=== PATIENT | female | born 1935 | race Caucasian/White ===

== ENCOUNTER → 2016-05-04 | Outpatient (CLI) | payer MEDICARE, BC ==
--- NOTE | 2016-05-04 18:35 | US ---
EXAMINATION TYPE: US venous doppler duplex LE BI DATE OF EXAM: 05/04/2016 5:56 PM COMPARISON: NONE CLINICAL HISTORY: I82.401, I82.402, M79.661, M79.662. Edema and pain left leg, patient on Coumadin SIDE PERFORMED: Bilateral VESSELS IMAGED: External Iliac Vein (EIV) Common Femoral Vein Deep Femoral Vein Greater Saphenous Vein * Femoral Vein Popliteal Vein Small Saphenous Vein * Proximal Calf Veins (* superficial vessels) TECHNOLOGIST IMPRESSION: Right Leg: no evidence of DVT Left Leg: no evidence of DVT, limitations due to large amount of soft tissue edema IMPRESSION: No evidence of deep venous thrombosis in the left and right leg. Subcutaneous edema seen on the left side.
== END | disposition home or self-care (01) ==
LOC: RADUSMAIN 16:44
PROVIDERS: ATTEND Orthopaedic Surgery
DX: R60.0 Localized edema (principal); M79.605 Pain in left leg
CPT/HCPCS: 93970

== ENCOUNTER 2018-01-29 21:46 | Emergency (ER) | payer MEDICARE ==
[2018-01-29 21:50] VITALS: RESP 18
[2018-01-29] MEDS ORDERED: ACETAMINOPHEN TAB 500 MG TAB PO STA (22:42)
[2018-01-29] MEDS ORDERED: traMADol 50 MG TAB PO STA (22:52)
--- NOTE | 2018-01-29 23:06 | CT ---
EXAMINATION TYPE: CT brain wo con DATE OF EXAM: 01/29/2018 COMPARISON: None HISTORY: No prior, facial injury from fall, no LOC CT DLP: 1220.60 mGycm Automated exposure control for dose reduction was used. FINDINGS: There is cerebral cortical atrophy. There is no mass effect nor midline shift. There is no sign of in tracranial hemorrhage. There is patchy hypodensity in the periventricular white matter. The calvarium is intact. There is mild mucosal thickening in the ethmoid sinus. IMPRESSION: CEREBRAL ATROPHY AND CHRONIC SMALL VESSEL ISCHEMIA. NO ACUTE INTRACRANIAL ABNORMALITY.
--- NOTE | 2018-01-29 23:10 | CT ---
EXAMINATION TYPE: CT facial bones wo con DATE OF EXAM: 01/29/2018 COMPARISON: None HISTORY: No prior, facial injury from fall, no LOC CT DLP: 00.00 mGycm Automated exposure control for dose reduction was used. TECHNIQUE: CT scan of the sinuses is performed without contrast, axial images are obtained, coronal r eformatted images are also reviewed. FINDINGS: Nasal bone shows displacement towards the left side related to comminuted fracture. The zyg omatic arches are intact. Zygoma appear intact. There is normal aeration of the maxillary sinuses. Or bital margins are intact. There is no evidence of a blowout fracture. There is no retro-orbital mass. Frontal bone appears intact. The mandibular ring is intact. 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 Is soft tissue swelling anterior to the right maxilla. IMPRESSION: Comminuted nasal bone fracture. Mild ethmoid sinusitis. Right-sided soft tissue swelling anterior to the maxilla.
[2018-01-29] MEDS ORDERED: TOPICAL SKIN ADHESIVE 1 EACH AMP TOPICAL ONE (23:16)
[2018-01-29] MEDS ORDERED: DIPH,PERTUS(ACELL)TETVAC-LF 0.5 ML VIAL IM ONE (23:37)
--- NOTE | 2018-01-29 23:43 | ED ---
Head Injury HPI - General Chief complaint: Head Injury Stated complaint: facial injury Time Seen by Provider: 01/29/18 22:05 Source: patient Mode of arrival: wheelchair Limitations: no limitations - History of Present Illness Initial comments: 82-year-old female patient presents to the emergency department today for evaluation of laceration to her nose and facial trauma after experiencing a fall. Patient states that she has chronic problems with her right ankle. States that she was walking a lot today and this evening in her bedroom her ankle gave out causing a fall. Patient states she did strike her face on the end table. States that she had immediate bleeding from the nose as well as laceration to the nose. She denies any loss of consciousness with the injury. States that she does currently have a headache. She denies any blurred vision, double vision, dizziness, weakness, nausea, or vomiting. Patient states she is having throbbing pain to the face. She denies any neck or back pain. Denies any other injuries. She is unsure when her last tetanus vaccine was given. Denies any use of anticoagulant or antiplatelet medications. Patient denies any chest pain, shortness of breath, abdominal pain, or difficulties with bowel movements or urination. - Related Data Previous Rx's Medication Instructions Recorded traMADol HCl [Ultram] 50 mg PO Q4H PRN #20 tab 11/05/15 Cephalexin [Keflex] 500 mg PO Q6H #28 cap 01/29/18 Allergies/Adverse reactions: Allergies Allergy/AdvReac Type Severity Reaction Status Date / Time Influenza Virus Vaccines Allergy Rash/Hives Verified 01/29/18 21:50 latex Allergy Rash/Hives Verified 01/29/18 21:50 procaine HCl [From Novocain] Allergy Rash/Hives Verified 01/29/18 21:50 Review of Systems ROS Statement: Those systems with pertinent positive or pertinent negative responses have been documented in the HPI. ROS Other: All systems not noted in ROS Statement are negative. Past Medical History Past Medical History: Asthma History of Any Multi-Drug Resistant Organisms: None Reported Past Surgical History: Joint Replacement, Orthopedic Surgery Past Psychological History: No Psychological Hx Reported Smoking Status: Never smoker Past Alcohol Use History: None Reported Past Drug Use History: None Reported General Exam Limitations: no limitations General appearance: alert, in no apparent distress, other (This is a well- developed, well-nourished elderly female patient in no acute distress. Vital signs upon presentation are temperature is 98.0F, pulse 88, respirations 18, blood pressure 194/80, pulse ox 99% on room air.) Eye exam: Present: normal appearance, PERRL, EOMI, periorbital swelling (Right suborbital swelling), periorbital tenderness (Right suborbital tenderness), other (Patient has right suborbital ecchymosis. Globes are intact. Pupils are equal, round, and briskly reactive. No hyphema.). Absent: scleral icterus, conjunctival injection ENT exam: Present: normal oropharynx, mucous membranes moist, TM's normal bilaterally, other (Irregular laceration measuring 2cm to the nasal bridge. There is surrounding abrasion, ecchymosis, and soft tissue swelling. ). Absent : normal exam Neck exam: Present: normal inspection, full ROM, other (Nontender, no step-off, no deformity to firm midline palpation of the posterior cervical spine. Full range of motion without pain or limitation.). Absent: tenderness, meningismus, lymphadenopathy Respiratory exam: Present: normal lung sounds bilaterally. Absent: respiratory distress, wheezes, rales, rhonchi, stridor Cardiovascular Exam: Present: regular rate, normal rhythm, normal heart sounds. Absent: systolic murmur, diastolic murmur, rubs, gallop, clicks GI/Abdominal exam: Present: soft, normal bowel sounds. Absent: distended, tenderness, guarding, rebound, rigid Extremities exam: Present: normal inspection, full ROM, normal capillary refill , other (Patient has some mild tenderness to the bilateral anterior knees. No abrasion or ecchymosis. No swelling. Skin to the upper and lower extremities is pink, warm, and dry. Cap refills less than 3 seconds. Pedal pulses 2+ and equal bilaterally. Radial pulses 2+ and equal bilaterally.). Absent: tenderness, pedal edema, joint swelling, calf tenderness Back exam: Present: normal inspection, other (Nontender, no step-off, no deformity to firm midline palpation of the thoracic and lumbar vertebrae. Full range of motion without pain or limitation.). Absent: vertebral tenderness Neurological exam: Present: alert, oriented X3, CN II-XII intact Psychiatric exam: Present: normal affect, normal mood Skin exam: Present: warm, dry, intact, normal color. Absent: rash Course Vital Signs 01/29/18 01/30/18 21:48 00:11 Temperature 98 F 97.8 F Pulse Rate 88 77 Respiratory 18 18 Rate Blood Pressure 194/80 183/104 O2 Sat by Pulse 99 98 Oximetry Procedures - Laceration Laceration #1 Consent Obtained: verbal consent Indication: laceration Site: face (Nasal bridge) Size (cm): 2 Description: stellate Depth: simple, single layer Pre-repair: wound explored Type of Sutures: other (Exofin) Patient Tolerated Procedure: well, no complications Medical Decision Making - Medical Decision Making 82-year-old female patient presents to the emergency department today for evaluation after fall. Physical examination did reveal 2 cm stellate laceration to the nasal bridge. Patient did have ecchymosis and soft tissue swelling over the nasal bridge as well as over the right suborbital region. Patient is neurologically intact with no focal deficits. Patient denied taking antiplatelet or anticoagulant medication. CT of the brain was performed and showed no acute intracranial abnormalities. Computed tomography scan of the face was obtained and did show a comminuted nasal bone fracture with displacement to the left. I did discuss findings and results with the patient. Patient did report ALLERGY to "leanna" medications and refuses suturing. I did repair laceration with Exofin skin adhesive. I did discuss with patient risks of scarring and poor cosmetic outcome with using the glue vs. sutures for this type of laceration, she verbally accepted risk and requested the glue. Tetanus was updated. Patient does have tramadol at home for pain control. She is instructed to apply ice to the facial swelling. She is instructed to follow-up with ear, nose, and throat specialty for further evaluation of her nasal bone fracture. She is instructed to follow-up with her primary care physician for recheck in 1-2 days. Return parameters were discussed in detail. She verbalizes understanding and agreed with this plan. - Radiology Data Radiology results: report reviewed, image reviewed CT brain without contrast was obtained. There is cerebral cortical atrophy. This no mass effect or midline shift. There is no sign of intracranial hemorrhage. There is patchy hypodensity in the periventricular white matter. The calvarium is intact. There is mild mucosal thickening in the ethmoid sinus. Impression by Dr. Waldron shows cerebral atrophy and chronic small vessel ischemia. No acute intracranial abnormality. Computed tomography scan of the sinuses performed without contrast. He is 1 shows displacement was a left-sided related to comminuted fracture. The zygomatic arches are intact. Zygoma appear intact. There is normal aeration of the maxillary sinuses. Orbital margins are intact. Is no evidence of a blowout fracture. There is no retro-orbital mass. Frontal bone. Intact. The mandibular ring is intact. There is some osteoarthritic changes the temporomandibular joint. Soft tissue swelling anterior to the right maxilla. Impression by Dr. Waldron shows comminuted nasal bone fracture. Mild ethmoid sinusitis. Right-sided soft tissue swelling anterior to the maxilla. Disposition Clinical Impression: Facial trauma, Facial laceration, Open fracture nasal bone Disposition: HOME SELF-CARE Condition: Good Instructions: Nasal Fracture (ED), Skin Adhesive Care (ED), Facial Laceration ( ED) Additional Instructions: Do not scrub or pull at the glue. Follow-up with ear, nose, and throat specialist for recheck as soon as possible. Return immediately for any new, worsening, or concerning symptoms per Prescriptions: Cephalexin [Keflex] 500 mg PO Q6H #28 cap Is patient prescribed a controlled substance at d/c from ED?: No Referrals: Nahed Rose MD [Primary Care Provider] - 1-2 days Kit Roman DO [Doctor of Osteopathic Medicine] - 1-2 days Time of Disposition: 23:43
[2018-01-29] MEDS ORDERED: CEPHALEXIN 500MG STARTER PACK 4 CAP BTL PO STA (23:44)
[2018-01-30 00:13] VITALS: BP 183/104; PULSE 77; TEMP 97.8
== END 2018-01-30 00:11 | disposition home or self-care (01) ==
LOC: EC 21:46
DX: S02.2XXB Fracture of nasal bones, initial encounter for open fracture (principal); S01.21XA Laceration without foreign body of nose, initial encounter; Z23 Encounter for immunization; Z96.60 Presence of unspecified orthopedic joint implant; Z88.7 Allergy status to serum and vaccine; Z91.040 Latex allergy status; Z88.4 Allergy status to anesthetic agent; W01.198A Fall on same level from slipping, tripping and stumbling with subsequent striking against other object, initial encounter; Y93.01 Activity, walking, marching and hiking; Y92.003 Bedroom of unspecified non-institutional (private) residence as the place of occurrence of the external cause
CPT/HCPCS: 12011; 70450; 70486; 90471; 90715; 99283

== ENCOUNTER 2021-06-05 14:27 | Emergency (ER) | payer MEDICARE ==
[2021-06-05 14:36] VITALS: TEMP 97.8
[2021-06-05] MEDS ORDERED: traMADol 50 MG TAB PO STA (15:16)
--- NOTE | 2021-06-05 15:20 | ED ---
General Adult HPI - General Chief complaint: Head Injury Stated complaint: Head Injury Time Seen by Provider: 06/05/21 15:04 Source: patient, RN notes reviewed Mode of arrival: ambulatory Limitations: no limitations - History of Present Illness Initial comments: Patient's an 85-year-old female presenting to the emergency room today with a chief complaint of a laceration to the top of her head. She does admit that just prior to arrival she had a can fall. Head causing this laceration. There was no loss conscious. She is not on any blood thinners. Patient admits to pain locally to the laceration site. She denies any other complains or any other symptoms. - Related Data Previous Rx's Medication Instructions Recorded traMADol HCl [Ultram] 50 mg PO Q4H PRN #20 tab 11/05/15 Cephalexin [Keflex] 500 mg PO Q6H #28 cap 01/29/18 Allergies Allergy/AdvReac Type Severity Reaction Status Date / Time Influenza Virus Vaccines Allergy Rash/Hives Verified 06/05/21 14:32 latex Allergy Rash/Hives Verified 06/05/21 14:32 procaine HCl [From Novocain] Allergy Rash/Hives Verified 06/05/21 14:32 Review of Systems ROS Statement: Those systems with pertinent positive or pertinent negative responses have been documented in the HPI. ROS Other: All systems not noted in ROS Statement are negative. Past Medical History Past Medical History: Asthma History of Any Multi-Drug Resistant Organisms: None Reported Past Surgical History: Joint Replacement, Orthopedic Surgery Past Psychological History: No Psychological Hx Reported Smoking Status: Never smoker Past Alcohol Use History: None Reported Past Drug Use History: None Reported General Exam - General Exam Comments Initial Comments: General: The patient is awake and alert, in no distress, and does not appear acutely ill. Eye: Pupils are equal, round and reactive to light, extra-ocular movements are intact. No nystagmus. There is normal conjunctiva bilaterally. No signs of icterus. Ears, nose, mouth and throat: There are moist mucous membranes and no oral lesions. Neck: The neck is supple Respiratory: respirations are non-labored, breath sounds are equal. Musculoskeletal: Normal ROM, no tenderness. Strength 5/5. Sensation intact. Neurological: A&O x 3. CN II-XII intact, There are no obvious motor or sensory deficits. Coordination appears grossly intact. Speech is normal. Skin: Patient does have laceration to the top of the head that measures approximately 1 cm Psychiatric: Cooperative, appropriate mood & affect, normal judgment. Limitations: no limitations Course Vital Signs 06/05/21 14:33 Temperature 97.8 F Pulse Rate 86 Respiratory 20 Rate Blood Pressure 193/89 O2 Sat by Pulse 99 Oximetry Procedures - Procedures Initial comment: 1 cm laceration to the head. No active bleeding. Wound was cleaned here in the emergency room by nursing staff. Was closed and approximated with 2 mary. Patient tolerated well. Medical Decision Making - Medical Decision Making Laceration was clean closed here in the emergency room she tolerated well. Patient advised to have mary removed 10 days. Patient admits to some chronic headaches as well. States she was taking tramadol the past. States she's been unable to follow with her family doctor. Was wondering if she could have a tramadol here. She was given one tablet. Patient is advised follow-up the family doctor. Advised return if any symptoms increase or worsen. States understanding and is in agreement. Disposition Clinical Impression: Scalp laceration Disposition: HOME SELF-CARE Condition: Good Instructions (If sedation given, give patient instructions): Laceration (ED) Additional Instructions: Please have mray removed in 10 days. Return to emergency room for any other concerns. Is patient prescribed a controlled substance at d/c from ED?: No If prescribed controlled substance>3 days was MAPS reviewed?: Prescribed <3 Days Referrals: Nahed Rose MD [Primary Care Provider] - 1-2 days Time of Disposition: 15:20
[2021-06-05 15:42] VITALS: BP 152/79; PULSE 85; RESP 18
== END 2021-06-05 15:42 | disposition home or self-care (01) ==
LOC: EC 14:27
DX: S01.01XA Laceration without foreign body of scalp, initial encounter (principal); J45.909 Unspecified asthma, uncomplicated; W22.8XXA Striking against or struck by other objects, initial encounter
CPT/HCPCS: 12001; 99282

== ENCOUNTER 2023-12-09 08:33 | Emergency (ER) | payer MEDICARE ==
[2023-12-09 08:55] VITALS: TEMP 98.1
--- NOTE | 2023-12-09 09:11 | ED ---
General Adult HPI - General Chief complaint: Fall Stated complaint: Fall Time Seen by Provider: 12/09/23 08:33 Source: patient, EMS, RN notes reviewed, old records reviewed Mode of arrival: EMS Limitations: no limitations - History of Present Illness Initial comments: Patient is an 88-year-old female who presents emergency department after a fall. States she fell this morning when she woke up and believes she struck her head on an end table. Has been dealing with bleeding from the site since. Did not call EMS until later this morning as the bleeding was persistent at home. EMS provided a pressure bandage which did seem to stem the bleeding. Patient is not on blood thinners. Takes no medications at home. Has remote history of asthma. Did not experience loss of consciousness. Denies any other injuries. Has chronic neck pain which is unchanged from baseline. Denies chest pain, abdominal pain, nausea, vomiting. Was ambulatory at home after the fall. Not up-to-date on tetanus. Presents for further evaluation at this time. - Related Data Home Medications Medication Instructions Recorded Confirmed No Known Home Medications 12/09/23 12/09/23 Allergies Allergy/AdvReac Type Severity Reaction Status Date / Time Influenza Virus Vaccines Allergy Rash/Hives Verified 12/09/23 10:45 latex Allergy Rash/Hives Verified 12/09/23 10:45 procaine HCl [From Novocain] Allergy Rash/Hives Verified 12/09/23 10:45 Review of Systems ROS Statement: Those systems with pertinent positive or pertinent negative responses have been documented in the HPI. Review of Systems: CONST: Denies fever EYES: Denies blurry vision ENT: Denies nasal congestion C/V: Denies Chest pain RESP: Denies shortness of breath GI: Denies abdominal pain : Denies dysuria SKIN: Endorses scalp injury MSK: Endorses scalp pain NEURO: Denies headache ROS Other: All systems not noted in ROS Statement are negative. Past Medical History Past Medical History: Asthma History of Any Multi-Drug Resistant Organisms: None Reported Past Surgical History: Joint Replacement, Orthopedic Surgery Past Psychological History: No Psychological Hx Reported Smoking Status: Never smoker Past Alcohol Use History: None Reported Past Drug Use History: None Reported General Exam - General Exam Comments Initial Comments: General: Appears in mild distress secondary to scalp injury HEAD: Left parietal scalp hematoma and suspected laceration. Negative Quintero sign. Negative raccoon eyes. EYES: PERRLA, EOMI, conjunctiva normal, no discharge. Pupils are 3 mm and equal bilaterally. ENT: Hearing grossly intact, normal oropharynx. RESPIRATORY: Clear breath sounds bilaterally. No wheezes, rales, or rhonchi. C/V: Regular rate and rhythm. S1 and S2 auscultated, no edema, peripheral pulses 2+ and intact throughout ABD: Abd is soft, nontender, nondistended EXT: Normal range of motion, no obvious deformity. No midline cervical, t horacic, lumbar spine tenderness to palpation. Pelvis is stable. SKIN: Patient does have a hematoma and suspected scalp laceration however bleeding is controlled at this time. We will probe and further inspect after imaging and workup. NEURO: Alert and oriented x 4. GCS of 15. No focal neurological deficits. Limitations: no limitations Course Vital Signs 12/09/23 12/09/23 08:52 09:55 Temperature 98.1 F Pulse Rate 78 72 Respiratory 18 17 Rate Blood Pressure 184/110 169/82 O2 Sat by Pulse 99 100 Oximetry Procedures - Laceration Laceration #1 Consent Obtained: verbal consent Indication: laceration Site: scalp Size (cm): 6 Description: linear Depth: simple, single layer Pre-repair: wound explored, irrigated extensively Additional Comments: 10 mary placed Medical Decision Making - Medical Decision Making Was pt. sent in by a medical professional or institution (, PA, COMMERCIAL LITIGATION ATTORNEY, urgent care, hospital, or long-term...) When possible be specific @ -No Did you speak to anyone other than the patient for history (EMS, parent, family, police, friend...)? What history was obtained from this source @ -No Did you review nursing and triage notes (agree or disagree)? Why? @ -I reviewed and agree with nursing and triage notes Were old charts reviewed (outside hosp., previous admission, EMS record, old EKG, old radiological studies, urgent care reports/EKG's, long-term records)? Report findings @ -No old charts were reviewed Differential Diagnosis (chest pain, altered mental status, abdominal pain women, abdominal pain men, vaginal bleeding, weakness, fever, dyspnea, syncope, headache, dizziness, GI bleed, back pain, seizure, CVA, palpatations, mental health, musculoskeletal)? @ -Fall, scalp laceration, intracranial injury, scalp hematoma. This list is not all inclusive. EKG interpreted by me (3pts min.). @ -As above X-rays interpreted by me (1pt min.). @ -Chest x-ray reveals no obvious acute injury. Pelvis x-ray reveals no obvious acute injury. CT interpreted by me (1pt min.). @ -CT brain reveals no obvious acute intracranial process or injury. CT cervical spine reveals no obvious acute injury. Patient does have a left scalp hematoma at the site of the laceration. U/S interpreted by me (1pt. min.). @ -None done What testing was considered but not performed or refused? (CT, X-rays, U/S, labs)? Why? @ -None What meds were considered but not given or refused? Why? @ -None Did you discuss the management of the patient with other professionals (professionals i.e. , PA, COMMERCIAL LITIGATION ATTORNEY, lab, RT, psych nurse, psychiatric social worker, architect manager, teacher, precinct commanding officer, spring encaser)? Give summary @ -No Was smoking cessation discussed for >3mins.? @ -No Was critical care preformed (if so, how long)? @ -No Were there social determinants of health that impacted care today? How? (Homelessness, low income, unemployed, alcoholism, drug addiction, transportation, low edu. Level, literacy, decrease access to med. care, usp, rehab)? @ -No Was there de-escalation of care discussed even if they declined (Discuss DNR or withdrawal of care, Hospice)? DNR status @ -No What co-morbidities impacted this encounter? (DM, HTN, Smoking, COPD, CAD, Cancer, CVA, ARF, Chemo, Hep., AIDS, mental health diagnosis, sleep apnea, morbid obesity)? @ -None Was patient admitted / discharged? Hospital course, mention meds given and route, prescriptions, significant lab abnormalities, going to OR and other pertinent info. @ -Patient presents emergency department complaining of a fall. Patient is not on blood thinners. She experienced no loss of consciousness. Has normal motor GCS. She does have an apparent scalp wound to the left parietal scalp that is difficult to evaluate at this time due to blood clotting and hair clotting but the bleeding appears to have stopped. Pressure dressing with TXA soaked gauze reapplied to the area. We will further investigate following imaging and workup. Patient does not meet trauma activation criteria. Vital signs remarkable for mild hypertension likely related to stress. Patient be given morphine for pain, 1 L fluids, as well as tetanus booster. Patient was in agreement this plan. No other obvious injuries. EKG shows no signs of acute ischemia.Imaging returned unremarkable. Laboratory studies also unremarkable. Patient required closure of scalp laceration. After cleaning it up, bleeding was controlled. Patient has an approximately 6 cm linear laceration with underlying hematoma to the left superior parietal scalp. Closed with 10 mary. Patient tolerated procedure well. Pressure dressing reapplied. Instructed not to remove for least a day unless it begins to bleed through which case she should be return to the ER. She was in agreement this plan. Patient be discharged home at this time. I did offer observation admission with her age however she would like to go home as she does have a dog at home. She feels well enough, vitals are within acceptable limits, workup relatively unremarkable otherwise believe this is reasonable. Can use Tylenol Motrin at home as needed for pain control. I instructed the patient to follow up with their PCP in the next 1-3 days. I explained that the patient should return to the emergency department if they experience any worsening symptoms. Strict return precautions were discussed with the patient. The patient expressed understanding of these instructions. I answered all questions that the patient had. The patient was discharged home in [good] condition with their prescriptions and follow up information. Undiagnosed new problem with uncertain prognosis? @ -No Drug Therapy requiring intensive monitoring for toxicity (Heparin, Nitro, Insulin, Cardizem)? @ -No Were any procedures done? @ -No Diagnosis/symptom? @ -Fall, scalp laceration closed with mary Acute, or Chronic, or Acute on Chronic? @ -Acute Uncomplicated (without systemic symptoms) or Complicated (systemic symptoms)? @ -Complicated Side effects of treatment? @ -None Exacerbation, Progression, or Severe Exacerbation] @ -No Poses a threat to life or bodily function? @ -Unlikely - Lab Data Result diagrams: 12/09/23 08:39 12/09/23 08:39 Lab Results 12/09/23 12/09/23 12/09/23 Range/Units 08:39 08:39 08:39 WBC 8.6 (3.8-10.6) k/uL RBC 4.82 (3.80-5.40) m/uL Hgb 14.2 (11.4-16.0) gm/dL Hct 42.4 (34.0-46.0) % MCV 87.9 (80.0-100.0) fL MCH 29.4 (25.0-35.0) pg MCHC 33.5 (31.0-37.0) g/dL RDW 14.3 (11.5-15.5) % Plt Count 237 (150-450) k/uL MPV 7.9 Neutrophils % 63 % Lymphocytes % 20 % Monocytes % 4 % Eosinophils % 11 % Basophils % 1 % Neutrophils # 5.4 (1.3-7.7) k/uL Lymphocytes # 1.7 (1.0-4.8) k/uL Monocytes # 0.3 (0-1.0) k/uL Eosinophils # 0.9 H (0-0.7) k/uL Basophils # 0.1 (0-0.2) k/uL PT 10.5 (10.0-12.5) sec INR 1.0 (<1.2) APTT 22.6 (22.0-30.0) sec Sodium 139 (137-145) mmol/L Potassium 3.6 (3.5-5.1) mmol/L Chloride 106 (98-107) mmol/L Carbon Dioxide 26 (22-30) mmol/L Anion Gap 7 mmol/L BUN 14 (7-17) mg/dL Creatinine 0.79 (0.52-1.04) mg/dL Est GFR (CKD-EPI)AfAm 79 (>60 ml/min/1.73 sqM) Est GFR (CKD-EPI)NonAf 69 (>60 ml/min/1.73 sqM) Glucose 157 H (74-99) mg/dL POC Glucose (mg/dL) (70-110) mg/dL POC Glu Lot Associate ID Calcium 9.3 (8.4-10.2) mg/dL Total Bilirubin 0.7 (0.2-1.3) mg/dL AST 27 (14-36) U/L ALT 16 (4-34) U/L Alkaline Phosphatase 46 (38-126) U/L Total Protein 6.6 (6.3-8.2) g/dL Albumin 4.1 (3.5-5.0) g/dL Serum Alcohol <10 mg/dL 12/09/23 Range/Units 09:22 WBC (3.8-10.6) k/uL RBC (3.80-5.40) m/uL Hgb (11.4-16.0) gm/dL Hct (34.0-46.0) % MCV (80.0-100.0) fL MCH (25.0-35.0) pg MCHC (31.0-37.0) g/dL RDW (11.5-15.5) % Plt Count (150-450) k/uL MPV Neutrophils % % Lymphocytes % % Monocytes % % Eosinophils % % Basophils % % Neutrophils # (1.3-7.7) k/uL Lymphocytes # (1.0-4.8) k/uL Monocytes # (0-1.0) k/uL Eosinophils # (0-0.7) k/uL Basophils # (0-0.2) k/uL PT (10.0-12.5) sec INR (<1.2) APTT (22.0-30.0) sec Sodium (137-145) mmol/L Potassium (3.5-5.1) mmol/L Chloride (98-107) mmol/L Carbon Dioxide (22-30) mmol/L Anion Gap mmol/L BUN (7-17) mg/dL Creatinine (0.52-1.04) mg/dL Est GFR (CKD-EPI)AfAm (>60 ml/min/1.73 sqM) Est GFR (CKD-EPI)NonAf (>60 ml/min/1.73 sqM) Glucose (74-99) mg/dL POC Glucose (mg/dL) 169 H (70-110) mg/dL POC Glu Lot Associate ID Sujata Gramajo Calcium (8.4-10.2) mg/dL Total Bilirubin (0.2-1.3) mg/dL AST (14-36) U/L ALT (4-34) U/L Alkaline Phosphatase (38-126) U/L Total Protein (6.3-8.2) g/dL Albumin (3.5-5.0) g/dL Serum Alcohol mg/dL - EKG Data -: EKG Interpreted by Me EKG Comments: 12-lead Electrocardiogram Interpretation Note EKG was reviewed and interpreted by myself. 12-lead ECG performed at 0856 is int erpreted by me as revealing normal sinus rhythm at a rate of 73 beats per minute. [place] is normal. MA interval is 176 ms, QRS durations 93 ms, QTc is 409 ms.. There were no ST or T wave abnormalities to suggest myocardial ischemia or injury. R wave progression across the precordium was satisfactory. By my interpretation this EKG is non-diagnostic for acute ischemia. Disposition Clinical Impression: Fall, Scalp laceration Disposition: HOME SELF-CARE Condition: Good Instructions (If sedation given, give patient instructions): Fall Prevention for Older Adults (ED), Staple Care (ED) Additional Instructions: Have medical provider remove mary in 7-10 days. Return if worsening bleeding or other concerns to the ER. Is patient prescribed a controlled substance at d/c from ED?: No Referrals: Nahed Rose MD [STAFF PHYSICIAN] - 1-2 days Time of Disposition: 11:32
[2023-12-09 09:23] LABS: Glucose,Whole Blood 169 mg/dL (70-110)
[2023-12-09 09:25] LABS: Basophils # (A) 0.1 k/uL (0-0.2); Basophils % (A) 1 %; Eosinophils # (A) 0.9 k/uL (0-0.7); Eosinophils % (A) 11 %; HCT 42.4 % (34.0-46.0); HGB 14.2 gm/dL (11.4-16.0); Lymphocytes # (A) 1.7 k/uL (1.0-4.8); Lymphocytes % (A) 20 %; MCH 29.4 pg (25.0-35.0); MCHC 33.5 g/dL (31.0-37.0); MCV 87.9 fL (80.0-100.0); Mean Platelet Volume 7.9; Monocytes # (A) 0.3 k/uL (0-1.0); Monocytes % (A) 4 %; Neutrophils # (A) 5.4 k/uL (1.3-7.7); Neutrophils % (A) 63 %; Platelet Count 237 k/uL (150-450); RBC 4.82 m/uL (3.80-5.40); RDW 14.3 % (11.5-15.5); WBC 8.6 k/uL (3.8-10.6)
--- NOTE | 2023-12-09 09:27 | XR ---
EXAMINATION TYPE: XR pelvis AP view DATE OF EXAM: 12/09/2023 CLINICAL HISTORY: pain TECHNIQUE: Single view the pelvis is submitted. FINDINGS: No evidence for fracture, dislocation or bony lesion. Bilateral hip prostheses. SI joints appear symmetric. IMPRESSION: 1. No acute fracture or dislocation seen. ICD 10 NO FRACTURE, INITIAL EVALUATION
--- NOTE | 2023-12-09 09:27 | XR ---
EXAMINATION TYPE: XR chest 1V portable DATE OF EXAM: 12/09/2023 HISTORY: Shortness of breath. COMPARISON: None. TECHNIQUE: Single view of the chest is submitted. FINDINGS: Demonstrated are scattered senescent parenchymal change. There is no evidence for focal infiltrate. The heart is stable. Hilar and mediastinal structures are within normal limits. Degenerative changes are seen of the dorsal spine. IMPRESSION: 1. Chronic changes without evidence for acute pulmonary disease.
[2023-12-09 09:41] LABS: ALT 16 U/L (4-34); AST 27 U/L (14-36); African American GFR (CKD) 79 (>60 ml/min/1.73 sqM); Albumin 4.1 g/dL (3.5-5.0); Alkaline Phosphatase 46 U/L (38-126); Blood Urea Nitrogen 14 mg/dL (7-17); Calcium 9.3 mg/dL (8.4-10.2); Carbon Dioxide 26 mmol/L (22-30); Chloride 106 mmol/L (98-107); Glucose 157 mg/dL (74-99); Non-African American GFR(CKD) 69 (>60 ml/min/1.73 sqM); Partial Thromboplastin Time 22.6 sec (22.0-30.0); Prothrombin Time 10.5 sec (10.0-12.5); Total Bilirubin 0.7 mg/dL (0.2-1.3); Total Protein 6.6 g/dL (6.3-8.2)
[2023-12-09 09:42] LABS: Alcohol <10 mg/dL; Anion Gap 7 mmol/L; Sodium 139 mmol/L (137-145)
[2023-12-09 09:54] LABS: Potassium 3.6 mmol/L (3.5-5.1)
[2023-12-09] MEDS: TRANEXAMIC ACID 1,000 MG/10 ML VIAL MISCELLANE ONE ×2 (09:55→09:56)
[2023-12-09] MEDS: SODIUM CHLORIDE 0.9% 1,000 ML IV ONE (10:02)
[2023-12-09] MEDS: DIPH,PERTUS(ACELL)TETVAC-LF 0.5 ML VIAL IM ONE (10:02)
[2023-12-09 10:07] VITALS: RESP 17
[2023-12-09] MEDS: MORPHINE SULFATE 2 MG/ML SYRINGE IV STA (10:10)
--- NOTE | 2023-12-09 10:49 | CT ---
EXAMINATION TYPE: CT brain cspine wo con CT DLP: 1435.2 mGycm, Automated exposure control for dose reduction was used. DATE OF EXAM: 12/09/2023 10:32 AM COMPARISON: None. CLINICAL INDICATION: Female, 88 years old with history of fall, scalp lac; Fall, scalp lac TECHNIQUE: Brain: Multiple axial CT images of the brain were obtained without IV contrast. Cspine: Axial CT images from the skull base to the inferior aspect of T2 we obtained without intraven ous contrast. Coronal and sagittal reformatted images were also reviewed. . FINDINGS: Brain: Extra-axial spaces: No abnormal extra-axial fluid collections. Ventricular system: Within normal limits Cerebral parenchyma: No acute intraparenchymal hemorrhage or mass effect. The marrero-white junction is well differentiated. Cerebellum: Unremarkable. Mass effect: No evidence of midline shift. Intracranial vasculature: unremarkable Soft tissues: Left scalp edema/hematoma. Calvarium/osseous structures: No depressed skull fracture. Paranasal sinuses and mastoid air cells: Clear. Visualized orbits: Orbital contents are intact. Cervical spine: Fracture: None. Osseous structures: Multilevel degenerative disc disease changes with endplate spurring and disc oste ophyte complex's. Vertebral alignment: Within normal limits. Spinal canal/Neural Foramina: No evidence of significant spinal canal narrowing. No evidence for sign ificant neural foraminal stenosis. Neck soft tissues: Prevertebral soft tissues are within normal limits. Other: The airway is patent. The lung apices are clear. IMPRESSION: 1. No acute intracranial process. 2. Left scalp edema/hematoma. 3. Nonspecific white matter changes, likely secondary to chronic small vessel ischemic disease. 4. No evidence of cervical spine fracture. 5. Mild multilevel degenerative disc disease.
[2023-12-09 12:08] VITALS: BP 170/90; PULSE 74
== END 2023-12-09 12:08 | disposition home or self-care (01) ==
LOC: EC 08:33
DX: W19.XXXA Unspecified fall, initial encounter
CPT/HCPCS: 12002; 36415; 70450; 71045; 72125; 72170; 80053; 80320; 85025; 85610; 85730; 90471; 90715; 93005; 96360; 99284

== ENCOUNTER 2024-10-17 06:16 | Day surgery (SDC) | payer MEDICARE ==
[2024-10-15 11:31] VITALS: BMI 30.7
[~2024-10-17 06:16] MED LIST: Pre Op ABX Message 1 EACH MISC MISCELLANE ONE
[2024-10-17] MEDS: IV FLUID CONTINUATION 1,000 ML IV ONE (06:40)
[2024-10-17] MEDS: CYCLOPENTOLATE 1% OPHTH SOLN 2 ML BTL OP PRN (06:58)
[2024-10-17] MEDS: PHENYLEPHRINE 2.5% OPHTH DRP 2ML OP PRN (07:02)
[2024-10-17] MEDS: LACTATED RINGERS 1,000 ML IV SCH (07:10)
[2024-10-17] MEDS ORDERED: PROPOFOL 10 MG/ML 20 ML VIAL IV ONE (07:30)
[2024-10-17] MEDS ORDERED: MIDAZOLAM 2 MG/2 ML VIAL ONE (07:30)
[2024-10-17] MEDS: EPINEPHrine (PF) 0.3 ML in BALANCED SALT IRRIG SOLN COMB2 500 ML IRRIGATION ONE (07:34)
[2024-10-17] MEDS: MOXIFLOXACIN HCL 0.5% DROPS 3 ML BTL OP PRN (07:57)
[2024-10-17] MEDS: BALANCED SALT IRRIG SOLN COMB2 15 ML IRRIG.SOLN INTRAOCULA ONE (07:57)
[2024-10-17] MEDS: DUOVISC KIT (GREEN BOX) INTRAOCULA ONE (07:57)
[2024-10-17] MEDS: TIMOLOL 0.5% OPHTH DROPS 5 ML BTL OP PRN (07:58)
--- NOTE | 2024-10-17 08:08 | P.OP ---
Date of Procedure: 10/17/24 Preoperative Diagnosis: NS & CS & PSC Postoperative Diagnosis: same Procedure(s) Performed: PIOL, OS Implants: DCB00 12.00 Anesthesia: MAC Surgeon: Nahid Moore Pathology: none sent Condition: stable Disposition: same day Indications for Procedure: blurry vision Operative Findings: no complications
[2024-10-17 08:23] VITALS: TEMP 97
[2024-10-17 09:02] VITALS: RESP 16
[2024-10-17] MEDS: hydrALAZINE HCL 20 MG/ML 1 ML VIAL IVP STA (09:46)
[2024-10-17 10:08] VITALS: BP 187/98; PULSE 75
--- NOTE | 2024-10-17 22:08 | OP ---
OPERATIVE REPORT DATE OF SERVICE : 10/17/2024 PREOPERATIVE DIAGNOSIS: Nuclear sclerosis, cortical sclerosis, posterior subcapsular cataract, left eye. POSTOPERATIVE DIAGNOSIS: Nuclear sclerosis, cortical sclerosis, posterior subcapsular cataract, left eye. OPERATION: Phacoemulsification of cataract and interocular lens implant, left eye. ANESTHESIA: General. ESTIMATED BLOOD LOSS: Zero. SPECIMEN TAKEN: None. NARRATIVE: After obtaining the appropriate consent, the patient was brought to the operating room where the patient was placed under cardiac monitoring and prepped and draped in the usual sterile manner. At the 5 o'clock position, a 15-degree super sharp blade was used to create a paracentesis followed by instillation of 1% Xylocaine MPF 50:50 mix with BSS into the anterior chamber. This was followed by DuoVisc viscoelastic to stabilize the anterior chamber. At the 3 o'clock position a self-sealing corneal flap incision was created using 2.8 mm stephan keratome. A cystotome was used to initiate a continuous tear capsulorrhexis which was completed with the Utrata forceps. A Binkhorst cannula was used to hydrodissect the lens nucleus followed by hydrodelineation. Phacoemulsification of the lens was performed utilizing phacochop in 23.25 seconds at 17.22% power. The remaining cortical material was removed using the irrigation aspiration mode followed by additional 1% Xylocaine MPF into the anterior chamber followed by viscoelastic to stabilize the capsular bag. A Mendel and Mendel model DCB00, 12.0 diopters posterior chamber lens was placed into the capsular bag without difficulty. The remaining viscoelastic material was removed from the anterior chamber with the irrigation/aspiration. Balanced salt solution was used to normalize the intraocular pressure. The incision was checked for watertight integrity. The patient then received 2 drops of 0.5% timolol followed by 2 drops Vigamox, was lightly patched and shielded in the usual manner. There were no complications from the procedure. The patient tolerated the procedure well and was returned to recovery in good condition. MMODL / IJN: [id number] /
== END 2024-10-17 10:41 | disposition home or self-care (01) ==
LOC: OR 06:16
PROVIDERS: ATTEND Ophthalmology
DX: H25.12 Age-related nuclear cataract, left eye (principal); H25.012 Cortical age-related cataract, left eye; H25.011 Cortical age-related cataract, right eye; H25.041 Posterior subcapsular polar age-related cataract, right eye; H25.042 Posterior subcapsular polar age-related cataract, left eye; H31.001 Unspecified chorioretinal scars, right eye; H25.11 Age-related nuclear cataract, right eye; H52.31 Anisometropia; H52.13 Myopia, bilateral; H52.4 Presbyopia; J45.909 Unspecified asthma, uncomplicated; Z91.040 Latex allergy status; Z88.4 Allergy status to anesthetic agent; Z88.6 Allergy status to analgesic agent; Z88.7 Allergy status to serum and vaccine; Z87.828 Personal history of other (healed) physical injury and trauma; Z79.899 Other long term (current) drug therapy
CPT/HCPCS: 66984; V2632; J2250; J0360; J2704; J0166